=== PATIENT | male | born 1995 | race Caucasian/White ===

== ENCOUNTER 2024-06-04 14:58 | Outpatient (CLI) | payer SELFPAY ==
[2024-06-04 21:07] LABS: Adenovirus,PCR Not Detected (NotDetected); Bordetella Pertussis Not Detected (NotDetected); Chlamydophila Pneumoniae, PCR Not Detected (NotDetected); Coronavirus 229E Not Detected (NotDetected); Coronavirus NL63 Not Detected (NotDetected); Coronavirus OC43 Not Detected (NotDetected); Coronovirus HKU1,PCR Not Detected (NotDetected); Human Metapneumovirus Not Detected (NotDetected); Influenza A, PCR Not Detected (NotDetected); Influenza AH1, 2009 Not Detected (NotDetected); Influenza AH1, PCR Not Detected (NotDetected); Influenza AH3,PCR Not Detected (NotDetected); Influenza B, PCR Not Detected (NotDetected); Mycoplasma Pneumoniae, PCR Not Detected (NotDetected); Parainfluenza 1, PCR Not Detected (NotDetected); Parainfluenza 2, PCR Not Detected (NotDetected); Parainfluenza 3, PCR Not Detected (NotDetected); Parainfluenza 4, PCR Not Detected (NotDetected); Respiratory Syncytial Virus Not Detected (NotDetected); Rhinovirus/Enterovirus Not Detected (NotDetected)
[2024-06-04 22:07] LABS: Basophils % 0.6 % (0.1-2.0); Eosinophils # 0.1 K/mm3 (0.0-0.4); Eosinophils % 0.7 % (0.1-12.0); Hematocrit 49.1 % (42.0-52.0); Hemoglobin 15.7 g/dL (14.1-18.0); Lymphocytes # 0.8 K/mm3 (0.7-4.5); Lymphocytes % 11.7 % (10-50); Mean Corpuscular HGB Conc 31.9 g/dL (31.8-35.4); Mean Corpuscular Hemoglobin 30.8 pg (27.0-31.2); Mean Corpuscular Volume 96.6 fl (80-94); Mean Platelet Volume 9.8 fl (7.4-10.4); Monocytes # 0.9 K/mm3 (0.1-1.0); Neutrophils # 4.9 K/mm3 (1.8-7.8); Platelet Count 262 K/mm3 (142-424); Red Blood Count 5.09 M/mm3 (4.60-6.20); Red Cell Distribution Width 13.6 % (11.5-17.5); White Blood Count 6.6 K/mm3 (4.8-10.8)
[2024-06-04 22:30] LABS: Alanine Aminotransferase 71 U/L (12-78); Albumin/Globulin Ratio 1.1 (1.1-1.8); Alkaline Phosphatase 61 U/L (38-126); Anion Gap 11.5 mEq/L (5-15); Aspartate Amino Transferase 45 U/L (17-59); Bilirubin,Total 0.6 mg/dl (0.2-1.3); Blood Urea Nitrogen 10 mg/dl (9-20); Calcium 9.2 mg/dl (8.4-10.2); Carbon Dioxide 27 mmol/L (22.0-30.0); Chloride 103 mmol/L (98-107); Chol/HDL Ratio 5.6 (1-3.5); Cholesterol 167 mg/dl (140-200); Estimated Glomerular Filt Rate 102 ml/min (>60); GFR (African American) 123 ML/MIN (>60); Globulin 3.5 g/dL (1.3-3.2); Glucose 106 mg/dl (74-100); HDL Cholesterol 30 mg/dl (40-60); Potassium 4.5 mmoL/L (3.5-5.1); Sodium 137 mmol/L (136-145); Total Protein,Serum 7.5 g/dl (6.3-8.2); Triglycerides 85 mg/dl (30-150); VLDL Cholesterol 17 mg/dL (0-40)
[2024-06-04 22:40] LABS: Hemoglobin A1C 5.7 % (4.0-6.0)
[2024-06-04 22:41] LABS: Direct LDL Cholesterol 108.38 mg/dL (100-129)
[2024-06-04 22:54] LABS: Thyroid Stimulating Hormone 0.72 uIU/mL (0.465-4.68)
[2024-06-05 02:28] LABS: Coronavirus 19, PCR Detected (NotDetected)
== END 2024-06-04 23:59 | disposition home or self-care (01) ==
LOC: LAB.DROPOF 06-05 13:55
PROVIDERS: PCP Nurse Practitioner; Visit Provider Nurse Practitioner
DX: R03.0 Elevated blood-pressure reading, without diagnosis of hypertension (principal); Z13.1 Encounter for screening for diabetes mellitus; Z13.220 Encounter for screening for lipoid disorders; R60.0 Localized edema; J06.9 Acute upper respiratory infection, unspecified; Z72.0 Tobacco use
CPT/HCPCS: 80050; 80053; 80061; 83036; 84443; 85025; 87581; 87632; 87635; 87798

== ENCOUNTER 2025-07-04 01:22 | Emergency (ER) | payer SELFPAY ==
--- NOTE | 2025-07-04 01:28 | ED_ITS ---
Discharge Plan Disposition Patient Disposition: Home, Self-Care Prescriptions Prescriptions: No Action azithromycin 250 mg tablet See Rx Instructions PO .COMPLEX Qty: 6 0RF Rx Instructions: For 250 mg dose pack: take 500 mg today (day 1), then 250 mg for 4 days (days 2-5) PO methylprednisolone 4 mg tablets,dose pack See Rx Instructions PO PER PKG DIR Qty: 21 0RF Rx Instructions: PO PER PKG DIR dextromethorphan-guaifenesin 60-1,200 mg tablet extended release 12 hr 1 tab PO Q12H Qty: 60 0RF albuterol sulfate 90 mcg/actuation HFA aerosol inhaler 2 puff inhalation Q4-6H PRN (Reason: shortness of breath or wheezing) Qty: 8.5 0RF Paxlovid 300 mg (150 mg x 2)-100 mg tablets,dose pack See Rx Instructions PO .COMPLEX Qty: 30 0RF Rx Instructions: take TWO 150 mg tablets of nirmatrelvir with ONE 100 mg tablet of ritonavir twice daily for 5 days PO Referrals Follow up/Referrals: Antonio Castro MD [Staff Physician, General Surgery] - See instructions Activity Restrictions/Add. Instructions Additional Instructions/Restrictions: Recommend following up with our general surgeon for further assessment. If your pain in the right upper quadrant returns and does not go away, recommend reassessment in the ER. Clinical Impressions Clinical Impression: Cholelithiasis Abdominal pain Qualifiers: Abdominal location: epigastric Qualified Code(s): R10.13 - Epigastric pain Instructions Patient Instructions: DI for Acute Abdominal Pain Print Language Print Language: Estonian Discharge ED Provider: Ephraim Linton Adult HPI General Chief complaint: Abdominal Pain Stated complaint: abd pain, vomiting Time Seen by Provider: 07/04/25 01:28 History of Present Illness HPI narrative: 33-year-old male with history of obesity presents for epigastric pain. He reports he had a couple days of pain last week but it went away. It has been back and has been worsening over the last couple of days. He reports nausea but no vomiting. Pain radiates up into his chest occasionally. Denies diarrhea. Denies any significant alcohol use. Has never had any abdominal surgery. Related Data Previous Rx's ?Medication ?Instructions ?Recorded albuterol sulfate 90 mcg/actuation 2 puff inhalation Q 4-6H PRN 06/04/24 aerosol inhaler shortness of breath or wheez ing #8.5 grams azithromycin 250 mg tablet See Rx Instructions PO .COM PLEX #6 06/04/24 tabs dextromethorphan-guaifenesin ER 60 1 tab PO Q12H #60 t abs 06/04/24 mg-1,200 mg tab,extend release,12hr methylprednisolone 4 mg tablets in See Rx Instructions PO PER PKG DIR 06/04/24 a dose pack #21 tabs nirmatrelvir 300 mg (150 mg See Rx Instructions PO .CO MPLEX 06/05/24 x2)-ritonavir 100 mg tablet,dose #30 tabs pack (Paxlovid) Allergies Allergy/AdvReac Type Severity Reaction Status Date / Time Penicillins Allergy Intermediate Verified 06/04/24 14:04 [facility] Disclaimer: The information contained in this section may have been updated after the patient was seen, as this information can be updated by other users. Medical History (Updated 07/04/25 @ 03:56 by Ephraim Linton MD) Bilateral lower extremity edema Elevated BP without diagnosis of hypertension Surgical History S/P tonsillectomy and adenoidectomy Family History (Updated 06/04/24 @ 14:05 by Ladonna Yarbrough MA) Grandmother Cancer Social History (Updated 06/04/24 @ 14:06 by Ladonna Yarbrough MA) Smoking Status: Current every day smoker alcohol intake: never substance use type: denies use current occupational status: employed Travel in the last 8 weeks?: None ROS Obtained: Yes All systems reviewed & no additional complaints except as documented Physical Exam General General appearance: alert and in no apparent distress Head Head exam: atraumatic and normocephalic Eye Eye exam: Present normal appearance, PERRL and EOMI ENT ENT exam: Present normal oropharynx and normal external ear exam Neck Neck exam: Present normal inspection and full ROM Chest Chest inspection: Present normal inspection and symmetric chest wall rise; Absent tenderness Respiratory Respiratory exam: Present normal lung sounds bilaterally; Absent respiratory distress Cardiovascular Cardiovascular exam: Present regular rate and normal rhythm Abdominal Exam Abdominal exam: Present soft and tenderness (Right upper quadrant, epigastric); Absent distention or guarding Extremities Exam Extremities exam: Present normal inspection; Absent edema or joint swelling Back Exam Back exam: Present normal inspection; Absent tenderness Neurological Exam Neurological exam: Present alert and oriented X3; Absent motor sensory deficit Psychiatric Psychiatric exam: Present normal affect and normal mood Skin Skin exam: Present warm, dry and normal color Lymphatic Lymphatic Findings: no adenopathy Medical Decision Making Medical Records Medical records reviewed: Yes I reviewed the patient's medical records. Screening: Per USPSTF and CDC recommendations, given the prevalence of disease in our region, it is our hospital?s policy to screen for HIV and viral Hepatitis for all patients aged 18 and over and those with ongoing risk factors. Jim Inquiry Pt receiving controlled substance: No Jim was queried for this patient: No Vital Signs: 07/04/25 01:37 07/04/25 02:01 07/04/25 02:31 Temperature 98.7 F Temperature Source Oral Pulse Rate 72 Pulse Rate [Radial] 86 Respiratory Rate 24 Blood Pressure 154/104 H 138/87 Blood Pressure [Right Arm] 176/123 H Blood Pressure Mean 104 Blood Pressure Mean [Right Arm] 140 Blood Pressure Position Blood Pressure Position [Right Arm] Sitting 02 Sat by Pulse Oximetry 94 L 94 L Oxygen Delivery Method Room Air 07/04/25 03:01 07/04/25 04:03 Temperature 98.7 F Temperature Source Pulse Rate 69 79 Pulse Rate [Radial] Respiratory Rate 18 Blood Pressure 134/93 H 134/87 Blood Pressure [Right Arm] Blood Pressure Mean Blood Pressure Mean [Right Arm] Blood Pressure Position Sitting Blood Pressure Position [Right Arm] 02 Sat by Pulse Oximetry 93 L Oxygen Delivery Method Room Air Lab Data Lab results reviewed: Yes I reviewed the patient's lab results. Lab Results 07/04/25 01:34: WBC 11.7 H, RBC 5.19, Hgb 15.6, Hct 46.0, MCV 88.6, MCH 30.1, MCHC 33.9, RDW 12.6, Plt Count 294, MPV 10.7 H, Neut % (Auto) 50.0, Lymph % (Auto) 36.1, Hodgeman % (Auto) 10.4 H, Eos % (Auto) 2.3, Baso % (Auto) 0.8, Neut # (Auto) 5.8, Lymph # (Auto) 4.2, Hodgeman # (Auto) 1.2 H, Eos # (Auto) 0.3, Baso # (Auto) 0.1, Sodium 141, Potassium 3.9, Chloride 101, Carbon Dioxide 35 H, Anion Gap 8.9, BUN 12, Creatinine 1.10, Estimated Creat Clear 107, Estimated GFR 78, Est GFR ( Amer) 94, Glucose 121 H, Calcium 9.6, Total Bilirubin 0.5, AST 45, ALT 61, Alkaline Phosphatase 67, Troponin I < 0.01, Total Protein 7.9, Albumin 4.5, Globulin 3.4 H, Albumin/Globulin Ratio 1.3, Lipase 128, HCV Ab HILDA w/Rflx PCR Qn Negative, HIV Ag/Ab Combo Qual Negative 07/04/25 01:34 07/04/25 01:34 Orders (Tests/Meds): ED MEDICATIONS Discontinued Medications Generic Name Dose Route Start Last Admin Trade Name Freq PRN Reason Stop Dose Admin Acetaminophen 1,000 mg 07/04/25 01:33 07/04/25 01:50 Acetaminophen 500mg Tab PO 07/04/25 01:34 1,000 mg ONCE ONE Administration Belladonna Alkaloids 60 ml 07/04/25 01:33 07/04/25 01:50 Belladonna Alkaloids 60 Ml Ml PO 07/04/25 01:34 60 ml ONCE ONE Administration Sodium Chloride 1,000 mls @ 999 mls/hr 07/04/25 01:45 07/04/25 03:01 Sod Chlor 0.9% 1000ml Bag IV 07/04/25 02:45 Infused .Q1H1M VAMSI Infusion Iopamidol 80 ml 07/04/25 02:13 07/04/25 02:16 Iopamidol-370 (76%);100ml Bottle IV 07/04/25 02:14 80 ml ONCE ONE Administration Ketorolac Tromethamine 30 mg 07/04/25 01:33 07/04/25 01:50 Ketorolac 30mg/Ml Vial IV 07/04/25 01:34 30 mg ONCE ONE Administration Ondansetron HCl 4 mg 07/04/25 01:33 07/04/25 01:50 Ondansetron 4mg/2ml Vial IV 07/04/25 01:34 4 mg ONCE ONE Administration Sodium Chloride 10 ml 07/04/25 02:13 07/04/25 02:16 Sodium Chloride 0.9% 10ml Syr (Rad Only) IV 07/04/25 02:14 10 ml ONCE ONE Administration ORDERS Category Date Time Status CT abdomen pelvis w con Stat Cat Scan 07/04/25 01:33 Completed CBC w/Auto Diff [Complete Blood Count Auto Diff] Stat Lab 07/04/25 01:34 Completed CMP [Comprehensive Metabolic Panel] Stat Lab 07/04/25 01:34 Completed HIV Combo Stat Lab 07/04/25 01:34 Completed Hepatitis C Ab Qual. W/ RFX Stat Lab 07/04/25 01:34 Completed Lipase Stat Lab 07/04/25 01:34 Completed Trop I [Troponin I] Stat Lab 07/04/25 01:34 Completed ECG Data Tracing #1: I reviewed this ECG and interpreted as documented below: ECG initial impression date: 07/04/25 ECG initial impression time: 01:46 ECG normal with no acute: arrhythmias, ischemia, conduction abnormalities, chamber hypertrophy Normal Sinus Rhythm: Yes HEART Score History (anamnesis): Slightly suspicious ECG: Normal Age: <45 years Risk factors: 1-2 risk factors Troponin: </= normal limit HEART Score: 1 Medical Decision Narrative: 33-year-old male with history of obesity presents for epigastric pain, nausea. History was obtained via interactive discussion with patient. On arrival, patient is [afebrile, hemodynamically stable, satting appropriately, alert, oriented x4, GCS 15], moving all extremities spontaneously. Full physical exam performed and significant for epigastric and right upper quadrant tenderness. Differential includes but is not limited to pancreatitis, gastroenteritis, cholecystitis, ACS. Patient was given Tylenol Toradol Zofran fluid bolus GI, for symptomatic management and correction of underlying abnormalities. Workup initiated including CBC CMP lipase EKG troponin CT abdomen pelvis with IV contrast. On re-evaluation, patient [remains afebrile, HD stable.] Laboratory workup independently interpreted by me and significant for mild leukocytosis with white count of 11.7, no significant electrolyte derangement, normal lipase, normal LFTs.. Imaging independently interpreted by me and significant for cholelithiasis without evidence of obvious cholecystitis. Image quality is somewhat diminished due to patient's body habitus.. See radiology read for full review of final results. I performed a bedside ultrasound, I was unable to obtain any views of the gallbladder due to patient's body habitus. On reassessment, patient reports resolution in pain. He has no tenderness in the right upper quadrant. Given patient history, exam and workup, patient's presentation most likely represents gastritis versus symptomatic cholelithiasis. No clear evidence of cholecystitis at this time. I discussed these findings with patient and gave him strict return precautions and encouraged him to follow-up with general surgery on an outpatient basis for further workup. Patient was agreeable to plan. Procedures Risk/Benefits of Procedure(s) Were Explained: Yes Critical Care Critical Care Time Critical Care Time: No
--- OUTSIDE RECORDS SUMMARY | 2025-07-04 01:29 | XMS_ITS | Patient Health Record ---
Author Organization [facility] ([facility]) Address [address] [place] [address] Support Name Relationship Address Phone SILVERIO CASEY Emergency Contact [address] [place] [address] Unavailable REYESSILVERIO Guarantor Unknown Unavailable Allergies Allergen (clinical drug ingredient) Drug/Non Drug Allergy documented on EMR Reaction Allergy Type Onset Date Status Penicillin (uncoded) throat swelling Allergy Active Reason For Referral No Information Medications Medication SIG (Take, Route, Fr equency, Duration) Notes Start Date End Date Status Cephalexin 500 MG 1 tablet Orally Four times a day; Duration: 5 days 11/01/2023 Active Immunizations Vaccine Route Administration Date Status Comme nts Fluarix Quadrivalent preserv ative free 6 mo and older Unknown 11/01/2023 Refused Social History Tobacco Use: Social History Observation Description Date Details (start date - stop date) Current Smoker NA - NA Sex Assigned At : Social History Observation Description Sex Assigned At Male Tobacco Use/Smoking Question Answer Notes Are you a current smoker How often do you smoke cigarettes? every day How many cigarettes a day do you smoke? 5 or les s How soon after you wake up do you smoke your fir st cigarette? 6-30 minutes Are you interested in quitting? Ready to quit Alcohol Screen (Audit-C) Question Answer Notes Did you have a drink containing alcohol in the p ast year? No Points 0 Interpretation Negative SBIRT 2018 Question Answer Notes Patient refused/declined SBIRT screening at this time? No 1. How often do you have a drink containing alco hol? Never 2. How many drinks containin g alcohol do you have on a typical day when you are drinking? 1 or 2 3. How often do you have five or more drinks on one occasion? Never SCORE 0 Interpretation Negative How many times in the past y ear have you used an illegal drug or used a prescription medication for non-medical reasons? 0 Total Count 0 Interpretation Negative Problems Problem Type SNOMED Code ICD Code Onset Dates Problem Status W/U Status Risk Notes Problem Body mass index 40+ - severely obese (611366234) BMI 50.0-59.9, adult (Z68.43) 11/01/2023 Active confirmed Problem Chronic fatigue syndrome (80790951) Chronic fatigue (R53.82) Active confirmed Plan Of Treatment No Information Insurance Providers Payer Name Payer Address Payer Phone Subscriber Number Group Number Insured Name Patient Relationship to Insured Coverage Start Date Coverage End Date [employer] [facility] [address] [place] [id number] SILVERIO REYES Self - patient is the insured
--- NOTE | 2025-07-04 01:32 | ECG_ITS ---
APPROVED REPORT Exam: Resting ECG HR:77 bpm ECG Measurements Heart Rate 77 AXES WI 138 P 44 QRSd 88 QRS 65 QT 359 T 31 QTc 391 Conclusion SINUS RHYTHM NORMAL ECG UNCONFIRMED REPORT Electronically signed by : THOMAS ROJO, 07/04/2025 03:57:01
--- NOTE | 2025-07-04 01:33 | CT_ITS ---
PROCEDURE INFORMATION: Exam: CT Abdomen And Pelvis With Contrast Exam date and time: 07/04/2025 2:15 AM Age: 33 years old Clinical indication: Nausea and vomiting; Abdominal pain; Epigastric; Additional info: Epigastric pain, n/v TECHNIQUE: Imaging protocol: Computed tomography of the abdomen and pelvis with contrast. Radiation optimization: All CT scans at this facility use at least one of these dose optimization techniques: automated exposure control; mA and/or kV adjustment per patient size (includes targeted exams where dose is matched to clinical indication); or iterative reconstruction. Contrast material: ISOVUE; Contrast volume: 80 ml; Contrast route: IV; COMPARISON: No relevant prior studies available. FINDINGS: Lungs: There is a calcified granuloma within the left lower lobe. Liver: Normal. No mass. Gallbladder and biliary ducts: Cholelithiasis is present without findings of cholecystitis. No gallbladder wall thickening or pericholecystic fluid collection. There is no biliary ductal dilation. Pancreas: Normal. No ductal dilation. Spleen: Normal. No splenomegaly. Adrenal glands: Normal. No mass. Kidneys and ureters: Normal. No hydronephrosis. Stomach and bowel: Unremarkable. No obstruction. No mucosal thickening. Appendix: No evidence of appendicitis. Intraperitoneal space: Unremarkable. No free air. No significant fluid collection. Vasculature: Unremarkable. No abdominal aortic aneurysm. Lymph nodes: Unremarkable. No enlarged lymph nodes. Urinary bladder: Unremarkable as visualized. Reproductive: Unremarkable as visualized. Bones/joints: There are mild degenerative changes of the spine. No discrete fracture. Soft tissues: Unremarkable. IMPRESSION: 1. No acute findings. Detail is somewhat limited secondary to the patient's body habitus. 2. Cholelithiasis is noted. No definitive gallbladder wall thickening is evident however, if there is clinical concern for cholecystitis, right upper quadrant ultrasound is recommended.
[2025-07-04 01:37] VITALS: BP 176/123; PULSE 86; RESP 24; TEMP 37.1; O2SAT 94; BMI 54.2
[2025-07-04 01:42] LABS: Hematocrit 46.0 % (42.0-52.0); Hemoglobin 15.6 g/dL (14.1-18.0); Immature Granulocytes % 0.4 %; Mean Corpuscular HGB Conc 33.9 g/dL (31.8-35.4); Mean Corpuscular Hemoglobin 30.1 pg (27.0-31.2); Mean Corpuscular Volume 88.6 fl (80-94); Nucleated Red Blood Cells % 0 %; Platelet Count 294 K/mm3 (142-424); Red Blood Count 5.19 M/mm3 (4.60-6.20); Red Cell Distribution Width-SD 41.2 fL; White Blood Count 11.7 K/mm3 (4.8-10.8)
[2025-07-04 01:47] LABS: Albumin Level 4.5 g/dl (3.5-5.0); Chloride 101 mmol/L (98-107); Potassium 3.9 mmoL/L (3.5-5.1); Sodium 141 mmol/L (136-145)
[2025-07-04] MEDS: 0.9 % SODIUM CHLORIDE 1000ML 1,000 ML 999 ML IV (01:48)
[2025-07-04 01:50] LABS: Alanine Aminotransferase 61 U/L (12-78); Albumin/Globulin Ratio 1.3 (1.1-1.8); Alkaline Phosphatase 67 U/L (38-126); Anion Gap 8.9 mEq/L (5-15); Aspartate Amino Transferase 45 U/L (17-59); Bilirubin,Total 0.5 mg/dl (0.2-1.3); Blood Urea Nitrogen 12 mg/dl (9-20); Carbon Dioxide 35 mmol/L (22.0-30.0); Creatinine Clearance Estimated 107 mL/min (50-200); Creatinine,Serum 1.10 mg/dl (0.66-1.25); Estimated Glomerular Filt Rate 78 ml/min (>60); GFR (African American) 94 ML/MIN (>60); Globulin 3.4 g/dL (1.3-3.2); Lipase 128 U/L (23-300); Total Protein,Serum 7.9 g/dl (6.3-8.2)
[2025-07-04] MEDS: KETOROLAC 30MG/ML VIAL 30 MG IV (01:50)
[2025-07-04] MEDS: BELLADONNA ALKALOIDS 60 ML ML PO (01:50)
[2025-07-04] MEDS: ONDANSETRON 4MG/2ML VIAL 4 MG IV (01:50)
[2025-07-04] MEDS: ACETAMINOPHEN 500MG TAB 1000 MG PO (01:50)
[2025-07-04 01:51] LABS: Calcium 9.6 mg/dl (8.4-10.2); Glucose 121 mg/dl (74-100)
[2025-07-04 02:01] VITALS: BP 154/104; PULSE 72; O2SAT 94
[2025-07-04] MEDS: IOPAMIDOL-370 (76%);100ML BOTTLE 80 ML IV (02:16)
[2025-07-04] MEDS: SODIUM CHLORIDE 0.9% 10ML SYR (RAD ONLY) 10 ML IV (02:16)
[2025-07-04 02:31] VITALS: BP 138/87
[2025-07-04 03:01] VITALS: BP 134/93; PULSE 69; O2SAT 93
[2025-07-04 03:02] LABS: Troponin I < 0.01 ng/ml (0.00-0.034)
--- NOTE | 2025-07-04 03:26 | PC.NURSE ---
ED provider at the bedside to update on POC.
[2025-07-04 04:00] LABS: Hepatitis C Ab Qual. W/ RFX NEGATIVE (Negative)
[2025-07-04 04:03] VITALS: BP 134/87; PULSE 79; RESP 18; TEMP 37.1; O2SAT 94
== END 2025-07-04 04:04 | disposition home or self-care (01) ==
PROVIDERS: Emergency Provider Emergency Medicine
DX: R10.13 Epigastric pain (principal); K80.20 Calculus of gallbladder without cholecystitis without obstruction; E66.01 Morbid (severe) obesity due to excess calories; F17.210 Nicotine dependence, cigarettes, uncomplicated
CPT/HCPCS: 74177; 80053; 83690; 84484; 85025; 86803; 87389; 93005; 96361; 96374; 96375; 99285; J1885; J2405; J7030; Q9967